=== PATIENT | male | born 1940 | race Hispanic/Latino ===

== ENCOUNTER 2017-04-08 06:38 | Outpatient (CLI) | payer MEDICARE ==
--- NOTE | 2017-04-08 15:12 | PET Report ---
PET SB TO MT INITIAL: HISTORY: Staging of left lung cancer. TECHNIQUE: 14.9 millicuries F-18 FDG was administered intravenously. Noncontrast CT images and PET images were obtained from the skull base to the proximal thighs. Fused images were reviewed on a workstation. The patient's blood glucose level measured 70. COMPARISON: 06/14/14. FINDINGS: BRAIN: physiologic FDG uptake in the imaged brain. NECK: physiologic FDG uptake. MEDIASTINUM: physiologic FDG uptake. LUNGS: 4.2 x 3.7 cm left upper lobe mass is identified with Max SUV measuring 26.4. The remainder of the lungs are clear. No infiltrate or pleural effusion. PLEURA/PERICARDIUM: physiologic FDG uptake. THORACIC LYMPH NODES: physiologic FDG uptake. HEPATOBILIARY: physiologic FDG uptake. Mean liver SUV measures 3.1. The small calcified gallstone is noted measuring 5 mm. PANCREAS: physiologic FDG uptake. SPLEEN: physiologic FDG uptake. ADRENAL GLANDS: physiologic FDG uptake. 1 cm left adrenal nodule with internal density measuring 8 Hounsfield units is consistent with an adrenal adenoma. KIDNEYS/RENAL COLLECTING SYSTEMS: physiologic FDG uptake. Multiple bilateral nonobstructing renal stones are identified. BOWEL/MESENTERY: physiologic FDG uptake. PELVIC VISCERA: physiologic FDG uptake. ABDOMINAL/PELVIC LYMPH NODES: There are multiple suspicious and mildly enlarged lymph nodes. There are a few mildly enlarged periaortic lymph nodes measuring up to 1.5 cm with Max SUV measuring 5.3-5.7. A 1.5 x 2.3 cm left common iliac lymph node demonstrates a max SUV of 8.4. There are 2 enlarged right inguinal lymph nodes. The largest measures 3.1 x 2.3 cm and demonstrates a max SUV of 20.4. MUSCULOSKELETAL: There is a subtle sclerotic lesion in the medial right clavicle with Max SUV measuring 4.5. There is a similar appearing sclerotic area in the right ischium with Max SUV measuring 9.9. IMPRESSION: Hypermetabolic left upper lobe mass consistent with primary lung cancer. Metastasis to approximately 3 periaortic lymph nodes, one left common iliac lymph node and 2 right inguinal lymph nodes is demonstrated. There are 2 subtle sclerotic bony lesions in the medial right clavicle and right ischium.
== END 2017-04-08 06:39 | disposition home or self-care (01) ==
LOC: PET 06:38
PROVIDERS: ATTEND Internal Medicine Pulmonary Disease
DX: C77.2 Secondary and unspecified malignant neoplasm of intra-abdominal lymph nodes (principal); R91.8 Other nonspecific abnormal finding of lung field; K80.20 Calculus of gallbladder without cholecystitis without obstruction; E27.8 Other specified disorders of adrenal gland; N20.0 Calculus of kidney; R59.9 Enlarged lymph nodes, unspecified; M89.9 Disorder of bone, unspecified
CPT/HCPCS: 78815; 82962; A9552